=== PATIENT | male | born 1995 ===

== ENCOUNTER 2019-04-05 19:52 | Emergency (ER) | payer SELFPAY ==
[~2019-04-05] VITALS: Ht 162.6 cm; Wt 68.0 kg
--- NOTE | 2019-04-05 19:59 | NUR ---
patient brought in by ambulance. According to report, witness seizure by roomate. Patient blood pressure 154/87, HR: 125, spo2 95%. patient alert and oriented x2. Patient is alert but forgetful. patient c/o of right shoulder pain that began after the seizure. patient stated that he has a history of seizures and takes medication. patient has difficulties remembering allergies at this time. Will follow up with patient. Patient on gurney, side rails padded, bed at lowest position and siezure precautions have been implemented. No active episodes of seizures at this point. will continue to monitor.
--- NOTE | 2019-04-05 20:04 | NUR ---
Dr. Ritchie at bedside.
[2019-04-05] MEDS ORDERED: TOPI200T16 PO (20:06)
--- NOTE | 2019-04-05 20:27 | NUR ---
patient ambulated to restroom with steady gait. denies any pain/discomfort/dizziness.
--- NOTE | 2019-04-05 20:53 | NUR ---
Patient discharged to home in stable conditon. Written and verbal after care instructions given. Patient verbalizes understanding of instructions. Patient self ambulatory with steady gait. patient able to verbalize needs and needs have been met. patient alert and oriented x4. Patient has a good understanding of health. Patient roomate at bedside and consents to driving the patient home. Exit care package and personal belongings taken with the patient at discharge. patient denies any discomfort/dizziness/confusion. patient able to recall event prior to discharge. patient VSS.
[2019-04-05 20:58] VITALS: BP 139/77
[2019-04-05] MEDS ORDERED: TOPIRAMATE 100 MG TABLET PO SCH (21:00)
== END 2019-04-05 20:30 | disposition home or self-care (01) ==
LOC: ER 19:52
DX: G40.909 Epilepsy, unspecified, not intractable, without status epilepticus (principal); M25.511 Pain in right shoulder; Z88.8 Allergy status to other drugs, medicaments and biological substances; Z79.899 Other long term (current) drug therapy
CPT/HCPCS: 73030; A4663